=== PATIENT | female | born 1990 | race African-American/Black ===

== ENCOUNTER 2021-04-02 16:42 | Inpatient (IN) | payer OTHER ==
[2021-04-02] MEDS ORDERED: KETOROLAC 30 MG/ML INJ ONE (17:26)
[2021-04-02] MEDS ORDERED: NA CHLORIDE 0.9% 1,000 ML ONE (17:26)
[2021-04-02 17:31] LABS: Urine Blood 1+ (Negative); Urine Glucose Negative (Negative); Urine Protein Negative (Negative)
[2021-04-02 17:44] LABS: Absolute Lymphocytes (CBC) 0.3 K/uL (0.7-4.9); Basophils % 0.6 % (0-1.3); Hematocrit 37.2 % (36.0-45.0); Lymphocytes % 5.2 % (15.3-44.8)
[2021-04-02 18:02] LABS: Bilirubin Direct 0.2 mg/dL (0-0.2); Bilirubin Total 0.4 mg/dL (0.2-1.0); Potassium 3.3 mmol/L (3.5-5.1); Protein, Total 8.1 g/dL (6.4-8.2)
--- NOTE | 2021-04-02 18:02 | RAD REPORT ---
EXAM DESCRIPTION: CTAbdomen Pelvis W Contrast - 04/02/2021 5:53 pm CLINICAL HISTORY: Abdominal pain. ABD PAIN COMPARISON: No comparisons TECHNIQUE: Biphasic CT imaging of the abdomen and pelvis was performed with 100 ml non-ionic IV cont rast. All CT scans are performed using dose optimization technique as appropriate and may include automated exposure control or mA/KV adjustment according to patient size. FINDINGS: The lung bases are clear. The liver, spleen, pancreas, adrenal glands and kidneys are within normal limits. No bowel obstruction, free air, free fluid or abscess. The appendix appears slightly thickened measu ring 8-9 mm. The periappendiceal fat is slightly reticulated. No evidence of significant lymphadenop athy. No suspicious bony findings. Multi fibroid uterus. IMPRESSION: Early acute appendicitis is suspected. Fibroid uterus.
[2021-04-02 18:17] LABS: Platelet Estimate ADEQ; White Blood Cell Scan OK (OK)
--- NOTE | 2021-04-02 18:17 | EDPHYS ---
Physician Documentation [facility] Name: Becky Wang Age: 30 yrs Sex: Female : 1990 Arrival Date: 04/02/2021 Time: 16:47 Bed 8 Private MD: ED Physician Rudi Forrest HPI: 04/02 17:28 This 30 yrs old Black Female presents to ER via Ambulatory with complaints of Pain All pm1 Over. 17:28 Patient reports fever and pain all over. Pain specifically located in the lower pm1 abdomen, hips, and lower back. Fever 102 at home treated with rubbing alcohol on her body. Did not take any antipyretics for fever or pain. Onset: The symptoms/episode began/occurred today. Severity of symptoms: in the emergency department the symptoms fever improved but pain is unchanged. The patient has not experienced similar symptoms in the past. The patient has not recently seen a physician. Negative for vaccination to flu and covid. 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 - Social history:: Smoking status: Patient reports the use of cigarette tobacco products, denies chronic smoking, but will smoke occasionally. ROS: 17:28 Eyes: Negative for injury, pain, redness, and discharge, ENT: Negative for injury, pm1 pain, and discharge, Cardiovascular: Negative for chest pain, palpitations, and edema, Respiratory: Negative for shortness of breath, cough, wheezing, and pleuritic chest pain. 17:28 : Negative for injury, bleeding, discharge, and swelling, MS/Extremity: Negative for injury and deformity, Skin: Negative for injury, rash, and discoloration. 17:28 Neuro: Negative for headache, weakness, numbness, tingling, and seizure. 17:28 Constitutional: Positive for body aches, fever. 17:28 Abdomen/GI: Positive for abdominal pain, of the right lower quadrant and left lower quadrant. 17:28 Back: Positive for of the low back area, pain. 17:28 All other systems are negative. Exam: 17:28 Constitutional: This is a well developed, well nourished patient who is awake, alert, pm1 and in no acute distress. Head/Face: Normocephalic, atraumatic. 17:28 Back: No spinal tenderness. No costovertebral tenderness. Full range of motion. Skin: Warm, dry with normal turgor. Normal color with no rashes, no lesions, and no evidence of cellulitis. MS/ Extremity: Pulses equal, no cyanosis. Neurovascular intact. Full, normal range of motion. 17:28 Eyes: Exam is negative for acute changes, Extraocular movements: no acute changes, Conjunctiva: no acute changes, no injection, Sclera: no acute changes, icterus, is not appreciated. 17:28 Cardiovascular: Exam negative for acute changes, Rate: normal, Rhythm: regular, Pulses: no pulse deficits are appreciated, Heart sounds: normal, normal S1and S2. 17:28 Respiratory: Exam negative for acute changes, respiratory distress, shortness of breath, Breath sounds: are clear throughout. 17:28 Abdomen/GI: Inspection: abdomen appears normal, Palpation: soft, in all quadrants, mild abdominal tenderness, in the right lower quadrant and left lower quadrant. 17:28 Neuro: Exam negative for acute changes, Orientation: is normal, Mentation: is normal, Motor: is normal, moves all fours. Vital Signs: 17:04 BP 131 / 92; Pulse 94; Resp 18; Temp 98.4(TE); Pulse Ox 99% on R/A; Weight 55.34 kg as6 (R); Height 5 ft. 3 in. (160.02 cm) (R); Pain 7/10; 18:44 BP 138 / 77; Pulse 87; Resp 15; Pulse Ox 100% ; jl7 17:04 Body Mass Index 21.61 (55.34 kg, 160.02 cm) as6 MDM: 17:20 Patient medically screened. pm1 17:32 Data reviewed: vital signs. Data interpreted: Pulse oximetry: on room air is 99 %. pm1 Interpretation: normal. 18:10 Physician consultation: Jeff Taylor MD regarding admission, patient's condition, and pm1 will see patient tomorrow, would like further tests performed, basic blood tests, in AM, would like medications started, IV fluids, pain medications, antibiotics, and NPO at midnight. 18:16 Counseling: I had a detailed discussion with the patient and/or guardian regarding: the pm1 historical points, exam findings, and any diagnostic results supporting the discharge/admit diagnosis, lab results, radiology results, the need for further work-up and treatment in the hospital. 04/02 17:19 Order name: Basic Metabolic Panel; Complete Time: 18:08 pm1 04/02 17:19 Order name: CBC with Diff; Complete Time: 18:37 pm1 04/02 17:19 Order name: Hepatic Function; Complete Time: 18:08 pm1 04/02 17:19 Order name: Lipase; Complete Time: 18:08 pm1 04/02 17:19 Order name: COVID-19/FLU A+B (Document "Date of Onset" if Symptomatic); Complete Time: pm1 18:37 04/02 17:31 Order name: Urine Dipstick-Ancillary EDMS 04/02 17:19 Order name: CT Abd/Pelvis - IV Contrast Only; Complete Time: 18:08 pm1 04/02 17:32 Order name: Urine --Ancillary (enter results); Complete Time: 17:52 eb 04/02 18:17 Order name: CBC Smear Scan; Complete Time: 18:37 EDMS 04/03 02:27 Order name: CREATININE WHOLE BLOOD; Complete Time: 02:33 EDMS 04/03 05:38 Order name: CBC with Automated Diff; Complete Time: 10:04 EDMS 04/03 06:19 Order name: Basic Metabolic Panel; Complete Time: 10:04 EDMS 04/03 06:19 Order name: Liver (Hepatic) Function; Complete Time: 10:04 EDMS 04/03 06:19 Order name: Lipase; Complete Time: 10:04 EDMS 04/02 17:19 Order name: IV Saline Lock; Complete Time: 17:36 pm1 04/02 17:19 Order name: Labs collected and sent; Complete Time: 17:36 pm1 04/02 17:19 Order name: Urine Dipstick-Ancillary (obtain specimen); Complete Time: 17:38 pm1 04/02 17:19 Order name: Urine Test (obtain specimen); Complete Time: 17:38 pm1 Administered Medications: 17:37 Drug: NS 0.9% 1000 ml Route: IV; Rate: 1000 ml; Site: right antecubital; as6 17:37 Drug: Ketorolac 30 mg Route: IVP; Site: right antecubital; as6 18:23 CANCELLED (Physician Discretion): NS 0.9% 1000 ml IV at 125 ml/hr once pm1 19:11 Drug: Zosyn (piperacillin-tazobactam) 3.375 grams Route: IVPB; Infused Over: 60 mins; as6 Site: right antecubital; 19:11 Drug: Potassium Effervescent Tablet 50 mEq Route: PO; as6 22:01 Drug: Tylenol 1000 mg {Note: verbal order per ADAM Conrad.} Route: PO; lp1 Disposition: 04/03 12:10 Co-signature as Attending Physician, Rudi Forrest MD I agree with the assessment and rn plan of care. Attestation: The patient's history, exam findings, diagnostics, and a summary of any interventions or procedures was reviewed in detail with Houston Mckeon NP. Disposition Summary: 04/02/21 18:17 Hospitalization Ordered Hospitalization Status: Inpatient Admission pm1 Provider: Jeff Taylor pmDick Condition: Stable pm1 Problem: new pm1 Symptoms: have improved pm1 Bed/Room Type: Standard pm1 Location: [facility] ER HOLD(04/02/21 19:30) Room Assignment: ERHOLD-(04/02/21 19:30) Diagnosis - Unspecified acute appendicitis pm1 Forms: - Medication Reconciliation Form pm1 - SBAR form pm1 Signatures: Dispatcher [employer] EDPaty Grimaldo RN RN Rudi Forrest MD MD rn Pena, Laura, RN RN lp1 Houston Mckeon NP AUTOMATIC CAR WASH ATTENDANT pm1 Angel Carnes RN RN as6 Corrections: (The following items were deleted from the chart) 04/02 18:23 18:19 NS 0.9% 1000 ml IV at 125 ml/hr once ordered. pm1 pm1 19:30 18:17 Telemetry/MedSurg (Inpatient) pm1 19:30 18:17 pm1 mw
--- NOTE | 2021-04-02 18:17 | ER ---
Nurse's Notes [facility] Name: Bceky Wang Age: 30 yrs Sex: Female : 1990 Arrival Date: 04/02/2021 Time: 16:47 Bed 8 Private MD: Diagnosis: Unspecified acute appendicitis Presentation: 04/02 17:04 Chief complaint: Patient states: headache, pain in extremities. Coronavirus screen: as6 Client presents with at least one sign or symptom that may indicate coronavirus-19. Standard/surgical mask placed on the client. Ebola Screen: No symptoms or risks identified at this time. Initial Sepsis Screen: Does the patient meet any 2 criteria? No. Patient's initial sepsis screen is negative. Does the patient have a suspected source of infection? No. Patient's initial sepsis screen is negative. Risk Assessment: Do you want to hurt yourself or someone else? Patient reports no desire to harm self or others. Onset of symptoms was April 02, 2021. 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 - Social history:: Smoking status: Patient reports the use of cigarette tobacco products, denies chronic smoking, but will smoke occasionally. Screenin:11 Abuse screen: Denies threats or abuse. Nutritional screening: No deficits noted. as6 Tuberculosis screening: No symptoms or risk factors identified. Fall Risk None identified. Assessment: 17:10 General: Appears in no apparent distress. uncomfortable, Behavior is calm, cooperative. as6 Pain: Complains of pain in pelvis Pain radiates to back. Neuro: Level of Consciousness is awake, alert, obeys commands, Oriented to person, place, time, Reports headache. Cardiovascular: Capillary refill < 3 seconds Patient's skin is warm and dry. Respiratory: Airway is patent Trachea midline Respiratory effort is even, unlabored, Respiratory pattern is regular, symmetrical. Derm: Skin is intact, is healthy with good turgor. 17:39 General: Behavior is crying. as6 Vital Signs: 17:04 BP 131 / 92; Pulse 94; Resp 18; Temp 98.4(TE); Pulse Ox 99% on R/A; Weight 55.34 kg as6 (R); Height 5 ft. 3 in. (160.02 cm) (R); Pain 7/10; 18:44 BP 138 / 77; Pulse 87; Resp 15; Pulse Ox 100% ; jl7 17:04 Body Mass Index 21.61 (55.34 kg, 160.02 cm) as6 ED Course: 16:47 Patient arrived in ED. ds1 17:04 Angel Carnes, RN is Primary Nurse. as6 17:07 Houston Mckeon NP is PHCP. pm1 17:07 Rudi Forrest MD is Attending Physician. pm1 17:09 Triage completed. as6 17:10 Arm band placed on. as6 17:11 Bed in low position. Call light in reach. Side rails up X2. Pulse ox on. NIBP on. as6 17:44 CT Abd/Pelvis - IV Contrast Only Sent. mh5 17:44 Urine Dipstick-Ancillary Sent. mh5 17:44 Urine collected: clean catch specimen, clear. mh5 17:54 CT Abd/Pelvis - IV Contrast Only In Process Unspecified. EDMS 18:16 Jeff Taylor MD is Hospitalizing Provider. pm1 19:15 No provider procedures requiring assistance completed. Patient admitted, IV remains in lp1 place. 04/03 00:13 Primary Nurse role handed off by Angel Carnes RN cs9 11:50 Delisa Weeks RN is Primary Nurse. jl7 Administered Medications: 04/02 17:37 Drug: NS 0.9% 1000 ml Route: IV; Rate: 1000 ml; Site: right antecubital; as6 17:37 Drug: Ketorolac 30 mg Route: IVP; Site: right antecubital; as6 18:23 CANCELLED (Physician Discretion): NS 0.9% 1000 ml IV at 125 ml/hr once pm1 19:11 Drug: Zosyn (piperacillin-tazobactam) 3.375 grams Route: IVPB; Infused Over: 60 mins; as6 Site: right antecubital; 19:11 Drug: Potassium Effervescent Tablet 50 mEq Route: PO; as6 22:01 Drug: Tylenol 1000 mg {Note: verbal order per ADAM Conrad.} Route: PO; lp1 Outcome: 18:17 Decision to Hospitalize by Provider. pm1 19:15 Admitted to ER Hold. Please see [facility] for further documentation. lp1 19:15 Condition: stable 19:15 Instructed on the need for admit. 04/03 11:51 Patient left the ED. jl7 Signatures: Dispatcher [employer] EDME Merced Diaz ds1 Tiffani De, RN RN lp1 Houston Mckeon NP HANDLE ASSEMBLER pm1 Tasha Guillaume Jahala, RN RN jl7 Xenia Scott 9 Angel Carnes RN RN as6
[2021-04-02 18:18] LABS: Blood Morphology Comment NOT SEEN (NOT SEEN)
[2021-04-02 18:29] LABS: SARS-COV-2 RT PCR POSITIVE (NEGATIVE)
[2021-04-02] MEDS ORDERED: D5 0.45 NS 1,000 ML IV ONE (18:53)
[2021-04-02] MEDS ORDERED: NA CHLORIDE 0.9% 100 ML ONE (18:53)
[2021-04-02] MEDS ORDERED: POTASSIUM 25 MEQ EFFERV TAB ONE (18:53)
[2021-04-02] MEDS ORDERED: PIPERACIL/TAZO 3.375 GM VIAL IV ONE (18:53)
[2021-04-02] MEDS ORDERED: D5 0.45 NS 1,000 ML IV SCH (19:00)
[2021-04-02] MEDS: D5 0.45 NS 1,000 ML IV SCH (19:03)
[2021-04-02] MEDS ORDERED: MORPHINE 4 MG/ML SYR IV PRN (19:03)
[2021-04-02] MEDS ORDERED: ONDANSETRON 4 MG/2 ML VIAL IV PRN (19:03)
[2021-04-02] MEDS ORDERED: ACETAMINOPHEN 500 MG TAB ONE (21:55)
[2021-04-02 23:43] VITALS: BMI 21.6
[2021-04-03 01:02] VITALS: O2SAT 100
[2021-04-03] MEDS ORDERED: PIPERACIL/TAZO 3.375 GM VIAL IV ONE ×2 (01:33→08:51)
[2021-04-03] MEDS ORDERED: NA CHLORIDE 0.9% 100 ML ONE ×2 (01:33→08:51)
[2021-04-03] MEDS: PIPER TAZO 3.375 GM in NA CHLORIDE 0.9% 100 ML IV SCH ×2 (01:53→09:00)
[2021-04-03 05:30] LABS: Absolute Lymphocytes (CBC) 0.6 K/uL (0.7-4.9); Basophils % 0.9 % (0-1.3); Hematocrit 32.7 % (36.0-45.0); Lymphocytes % 15.1 % (15.3-44.8); MPV 7.2 fL (7.6-11.3); RBC Red Blood Cell Count 3.53 M/uL (3.86-4.86)
[2021-04-03 05:49] LABS: ALT/SGPT 52 U/L (12-78); AST/SGOT 46 U/L (15-37); Albumin 2.9 g/dL (3.4-5.0); Alkaline Phosphatase 57 U/L (45-117); BUN Blood Urea Nitrogen 8 mg/dL (7-18); Bicarbonate 24 mmol/L (21-32); Bilirubin Direct 0.1 mg/dL (0-0.2); Bilirubin Total 0.3 mg/dL (0.2-1.0); Glucose Level 107 mg/dL (74-106); Lipase 109 U/L (73-393); Potassium 3.5 mmol/L (3.5-5.1); Protein, Total 6.3 g/dL (6.4-8.2); Sodium Level 140 mmol/L (136-145)
[2021-04-03] MEDS ORDERED: D5 0.45 NS 1,000 ML IV ONE (06:55)
[2021-04-03] MEDS: D5 0.45 NS 1,000 ML IV SCH (07:09)
[2021-04-03] MEDS ORDERED: INFLUENZA VACCINE (for 6+ mo) 0.5 ML DOSE IMVAC ONE (09:00)
[2021-04-03 09:03] VITALS: BP 122/99; TEMP 98.3
--- NOTE | 2021-04-03 11:00 | P.HP ---
Date of Service: 04/03/21 PC: This due to old female presented to the emergency room with severe right lower quadrant abdominal pain for diagnosis and treatment. HPC: Patient had been feeling well, began experiencing right lower quadrant abdominal pain. Pain intensified. Associated with some nausea. PSHx: Negative PMHx: Negative Social Hx: No known allergies Sys R: Has been feeling well the last couple of days. No real nausea or vomiting. Denies any urinary complaints. No vaginal discharge. O/E: Awake alert vital signs are stable HEENT: Not jaundiced Chest: Chest movement equal bilaterally Abd: Soft nontender no guarding or rebound. Patient easily sits up and moves around on the stretcher. [place]: Intact Data: White cell count 6000, CT scan suggested possible early appendicitis Impression: Early appendicitis Plan: Patient has been admitted for observation. She may require going to the operating room.
--- NOTE | 2021-04-03 11:02 | P.PN ---
Date of Service: 04/03/21 S: Patient feels better today, up moving around, asking for food. Says her abdominal pain has resolved. O: Patient is able to spring up right while laying in the bed. Answers questions and does not look at all distressed. Anxious to go home if possible. A: Patient does not have appendicitis. She did test Covid positive which may explain her abdominal pain. However today she does not have a surgical abdomen at all. PE: Patient was admitted for observation. This morning as her exam is essentially benign. Apparently last night she did have some right lower quadrant tenderness which has completely resolved. She is awake alert looks well, asking for food. I will discharge her at this time. She lives close to the hospital and knows should she have any questions or problems that she is to return immediately. She is comfortable with this. I will discussed with the ER physician as she did test positive for Covid.
== END 2021-04-03 11:50 | disposition home or self-care (01) | DRG 179 ==
LOC: ER 16:42 → ERHOLD 18:20
PROVIDERS: ADMIT Surgery; ATTEND Surgery
DX: U07.1 COVID-19 (principal); R10.31 Right lower quadrant pain
CPT/HCPCS: 0240U; 36415; 74177; 80048; 80076; 81003; 81025; 82565; 83690; 85025; 96374; 96375; 99285; J2543; J7030; J7799; Q9967

== ENCOUNTER 2021-09-25 18:39 | Emergency (ER) | payer OTHER ==
--- OUTSIDE RECORDS SUMMARY | 2021-09-25 18:42 | XMS REPORT | Continuity of Care Document ---
:1990 Author Organization [facility] t Address [address] [place] [address] Care Team Providers Name Role Phone Pcp, Does Not Have A Primary Care Physician Nicholas RN Attending Clinician Unavailable Lab, - Db Attending Clinician Unavailable Werner MOTA, Cam Attending Clinician Payers Payer Name Policy Type Policy Number Effective Date Expiration Date S ource Problems Condition Condition Condition Status Onset Resolution Last Treating Co mments Source Name Details Category Date Date Treatment Clinician Date Supervisio Supervisio Disease Active U nivers n of n of 5-27 ity of normal normal 00:00: [place] [facility] , Br anch antepartum antepartum Allergies, Adverse Reactions, Alerts This patient has no known allergies or adverse reactions. Social History Social Habit Start Date Stop Date Quantity Comments Source ASSERTION 2021-07-27 University 00:00:[address] [facility] History [facility] o f Alcohol Frequency [facility] edical Branch History [facility] University o f Alcohol Std [place] [facility] [place] Binge [place] [facility] Exposure to 2021-09-13 2021-09-23 Not sure University SARS-CoV-2 00:00:00 11:27:00 [facility] (event) Branch Tobacco use and 2021-09-09 2021-09-09 Never used Universit y of exposure 00:00:00 00:00:[address] [facility] Alcohol intake 2021-09-09 2021-09-09 Ex-drinker [facility] 00:00:00 00:00:00 (finding) [facility] Alcohol Comment 2021-09-09 2021-09-09 quit when found Univ ersity of 00:00:00 00:00:00 out was [facility] Tobacco Comment 2021-09-09 2021-09-09 1 cig every Universi ty of 00:00:00 00:00:[address] [facility] Sex Ass[birth year] Universit y of 00:00:00 00:00:[address] [facility] Smoking Status Start Date Stop Date Source Current some day smoker 2021-09-09 00:00:00 [facility] of [facility] Medications Ordered Filled Start Stop Current Ordering Indication Dosage Frequency Signature Comments Components Source Medication Medication Date Date Medication? Clinician (SIG) Name Name metroNIDAZO Yes [id number] 500mg Take 1 Univers LE 500 mg 5-29 tablet by ity o f tablet 00:00: mouth [place] 00 every 12 Medical (twelve) Branch hours. metroNIDAZO 2021-0 Yes [id number] 500mg Take 1 Univers LE 500 mg 5-29 tablet by ity o f tablet 00:00: mouth [place] 00 every 12 Medical (twelve) Branch hours. metroNIDAZO 2021-0 Yes [id number] 500mg Take 1 Univers LE 500 mg 5-29 tablet by ity o f tablet 00:00: mouth [place] 00 every 12 Medical (twelve) Branch hours. PNV 2021-0 Yes Take by Univers no.95/ilda 5-27 mouth. ity of 09:19: [place] fum/folic 17 Medical ac Branch ( ORAL) PNV 2021-0 Yes Take by Univers no.95/idla 5-27 mouth. ity of us 09:19: [place] fum/folic 17 Medical ac Branch ( ORAL) PNV 2021-0 Yes Take by Univers no.95/ilda 5-27 mouth. ity of us 09:19: [place] fum/folic 17 Medical ac Branch ( ORAL) Procedures This patient has no known procedures. Encounters Start End Encounter Admission Attending Care Care Encounter Source Date/Time Date/Time Type Type Clinicians Facility Department ID 2021-09-25 2021-09-25 Nurse Asha Peterson [id number] Univers 00:00:00 00:00:00 Triage DEYA [id number] it y [facility] [id number] Roman as [id number] [facility] 019 Branch 2021-09-23 2021-09-23 Pediatric Dental Assistant Lab, [place] - [facility] [id number] Univers 11:30:00 13:02:06 Visit Mary Ellen Caldera [id number] ity of [place] [id number] Roman as ARI?BLEA [id number] Ca araseli [address] MEDICAL OFFICE BUILDING 2021-09-23 2021-09-23 Case Mary Ellen Caldera [facility] [id number] Univers 00:00:00 00:00:00 Management Gomez DEVINE [id number] [facility]y [facility] [id number] [place] [id number] 134 Branch Results This patient has no known results.
[2021-09-25 19:23] LABS: Urine Blood Negative (Negative); Urine Glucose Negative (Negative); Urine Protein Negative (Negative); Urine pH 6.5 (5.0-7.0)
[2021-09-25 19:38] LABS: Urine Bacteria <20 /HPF (<20); Urine RBC NONE SEEN /HPF (NONE SEEN); Urine Yeast PRESENT (NONE SEEN); Urine Yeast with Hyphae PRESENT
[2021-09-25 19:44] LABS: Absolute Lymphocytes (CBC) 1.8 K/uL (0.7-4.9); Hematocrit 36.5 % (36.0-45.0); Lymphocytes % 19.5 % (15.3-44.8); MPV 6.6 fL (7.6-11.3)
[2021-09-25] MEDS ORDERED: NA CHLORIDE 0.9% 1,000 ML ONE (19:44)
--- NOTE | 2021-09-25 20:05 | RAD REPORT ---
EXAM DESCRIPTION: US - 1St Trimest Single 1St Fetus - 09/25/2021 7:25 pm CLINICAL HISTORY: with abdominal pain COMPARISON: None FINDINGS: Uterus measures 7 x 5 x 6 centimeters. A gestational sac is present within the endometrium . Within this is a pole with a crown-rump length 4.2 centimeters. Cardiac activity 176 beats pe r minute. Right and left adnexum unremarkable. No significant free fluid IMPRESSION: Single live intrauterine with an estimated gestational 10 weeks 6 days ROVERTO 05/2022
[2021-09-25 20:15] LABS: Potassium 3.6 mmol/L (3.5-5.1)
--- NOTE | 2021-09-25 20:25 | ER ---
Nurse's Notes [facility] Name: Becky Wang Age: 31 yrs Sex: Female : 1990 Arrival Date: 09/25/2021 Time: 18:40 Bed 7 Private MD: Diagnosis: Lower abdominal pain, unspecified;11 weeks gestation of Presentation: 09/25 19:13 Chief complaint: Patient states: she is having suprapubic pain, urinary frequency, as6 dysuria, pt is also 11 weeks . Coronavirus screen: At this time, the client does not indicate any symptoms associated with coronavirus-19. Ebola Screen: No symptoms or risks identified at this time. Initial Sepsis Screen: Does the patient meet any 2 criteria? No. Patient's initial sepsis screen is negative. Does the patient have a suspected source of infection? No. Patient's initial sepsis screen is negative. Risk Assessment: Do you want to hurt yourself or someone else? Patient reports no desire to harm self or others. Onset of symptoms was September 25, 2021 at 09:30. 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 - Social history:: Smoking status: Patient/guardian denies using tobacco. Screenin:19 Abuse screen: Denies threats or abuse. Denies injuries from another. Nutritional as6 screening: No deficits noted. Tuberculosis screening: No symptoms or risk factors identified. Fall Risk None identified. Assessment: 19:18 General: Appears in no apparent distress. Behavior is calm, cooperative. Pain: as6 Complains of pain in suprapubic area Pain currently is 6 out of 10 on a pain scale. Quality of pain is described as pressure. Neuro: Ayers Agitation-Sedation Scale (RASS): 0 - Alert and Calm Level of Consciousness is awake, alert, obeys commands, Oriented to person, place, time, situation. Cardiovascular: Capillary refill < 3 seconds Patient's skin is warm and dry. Respiratory: Respiratory effort is even, unlabored, Respiratory pattern is regular, symmetrical. GI: Reports lower abdominal pain. : Reports burning with urination, since 0930 AM today urinary frequency. 20:46 GI: as6 20:47 GI: as6 Vital Signs: 19:13 BP 129 / 75; Pulse 85; Resp 18 S; Temp 97.2(TE); Pulse Ox 100% on R/A; Weight 56.7 kg as6 (R); Height 5 ft. 3 in. (160.02 cm) (R); Pain 6/10; 20:43 BP 123 / 86; Pulse 84; Resp 18 S; Pulse Ox 97% on R/A; as6 19:13 Body Mass Index 22.14 (56.70 kg, 160.02 cm) as6 ED Course: 18:40 Patient arrived in ED. as 18:43 Rajni Davis PA is PHCP. en 18:43 Thony Avila MD is Attending Physician. en 19:02 Angel Carnes, ANABEL is Primary Nurse. as6 19:15 Triage completed. as6 19:16 Arm band placed on. as6 19:19 Bed in low position. Call light in reach. Side rails up X 1. Adult w/ patient. Pulse ox as6 on. NIBP on. 19:27 US 1st Trimest Single 1st Fetus In Process Unspecified. EDMS 19:33 PHCP role handed off by Rajni Davis PA kb 19:33 Maryam Keenan FNP-C is PHCP. kb 19:38 HCG-Quantitative Sent. jb4 19:38 BMP Sent. jb4 19:38 UA MICROSCOPIC Sent. jb4 19:38 CBC with Diff Sent. jb4 19:40 Patient has correct armband on for positive identification. Placed in gown. Warm mh5 blanket given. 19:40 Initial lab(s) drawn, by me, sent to lab. Urine collected: clean catch specimen, mh5 cloudy. Inserted saline lock: 20 gauge in right antecubital area, using aseptic technique. Blood collected. 20:46 No provider procedures requiring assistance completed. IV discontinued, intact, as6 bleeding controlled, No redness/swelling at site. Pressure dressing applied. Administered Medications: 19:41 Drug: NS 0.9% 1000 ml Route: IV; Rate: 1 bolus; Site: right antecubital; as6 20:47 Follow up: Response: No adverse reaction; IV Status: Completed infusion; IV Intake: as6 1000ml Medication: 20:47 VIS not applicable for this client. as6 Intake: 20:47 IV: 1000ml; Total: 1000ml. as6 Outcome: 20:24 Discharge ordered by MD. bee 20:46 Discharged to home ambulatory, with significant other. as6 20:46 Condition: stable 20:46 Discharge instructions given to patient, Instructed on discharge instructions, follow up and referral plans. Demonstrated understanding of instructions, follow-up care. 20:47 Patient left the ED. as6 Signatures: Dispatcher [employer] EDMS Maryam Keenan, ERICH PASTRANA-Rachael Quinteros James, RN RN jb4 Tasha Guillaume [facility] Angel Carnes RN RN as6 Rajni Davis PA PA en
--- NOTE | 2021-09-25 20:25 | EDPHYS ---
Physician Documentation [facility] Name: Becky Wang Age: 31 yrs Sex: Female : 1990 Arrival Date: 09/25/2021 Time: 18:40 Bed 7 Private MD: ED Physician Thony Avila HPI: 09/25 18:52 This 31 yrs old Black Female presents to ER via Unassigned with complaints of Abdominal en Pain - 11 wks preg. 18:52 1-year-old female G1, 11 weeks EGA x LMP 07/27 presents to ED with 3 days of en worsening suprapubic and pelvic cramping. She reports associated urinary frequency and dysuria without hematuria vaginal discharge or vaginal bleeding. She called her domestic laundry worker who instructed her to come to the ED should her symptoms worsen. She denies fever, chills, nausea, vomiting. Patient has had a previous ultrasound confirming IUP. OB is Dr. Caldera. DOCKETING SPECIALIST: 19:19 LMP 07/02/2021, Verified, EDC 04/08/2022, Gestational age from LMP: 12 weeks 2 as6 days Historical: - Allergies: 19:16 No Known Allergies; as6 - Home Meds: 19:16 None [Active]; as6 - PMHx: 19:16 None; as6 - PSHx: 19:16 None; as6 - Immunization history:: Client reports having NOT received the Covid vaccine. - Social history:: Smoking status: Patient/guardian denies using tobacco. ROS: 18:52 Constitutional: Negative for fever, chills, and weight loss. en 18:52 Constitutional: Negative for body aches, chills, fatigue, fever. 18:52 Abdomen/GI: Positive for abdominal pain, nausea, vomiting, and diarrhea. 18:52 Back: 18:52 : Positive for urinary frequency, burning with urination, Negative for hematuria, foul smelling urine, vaginal bleeding, vaginal discharge, vaginal itching. 18:52 Skin: Negative for 18:52 All other systems are negative. Exam: 18:52 Constitutional: This is a well developed, well nourished patient who is awake, alert, en and in no acute distress. 18:52 Constitutional: The patient appears in no acute distress, alert, awake. 18:52 Eyes: Conjunctiva: normal, no exudate, no injection. 18:52 ENT: Mouth: Lips: moist, Oral mucosa: pink and intact, moist, Posterior pharynx: Airway: patent. 18:52 Cardiovascular: Rate: normal, Rhythm: regular, Pulses: no pulse deficits are appreciated, Heart sounds: normal, no murmur, no rub, no gallop. 18:52 Respiratory: the patient does not display signs of respiratory distress, Respirations: normal, Breath sounds: are clear throughout, no rales, rhonchi, no stridor, no wheezing. 18:52 Abdomen/GI: Inspection: abdomen appears normal, Bowel sounds: normal, in all quadrants, Palpation: soft, Mild suprapubic tenderness to palpation.. 18:52 Back: CVA tenderness, is absent. 18:52 Neuro: Orientation: is normal, no acute changes, to person, place \T\ time. Mentation: is normal. 18:52 Psych: Affect is calm. 18:52 Abdomen/GI: No adnexal or right lower quadrant tenderness to palpation. No tenderness en at McBurney's point, no rebound guarding or peritoneal signs.. Vital Signs: 19:13 BP 129 / 75; Pulse 85; Resp 18 S; Temp 97.2(TE); Pulse Ox 100% on R/A; Weight 56.7 kg as6 (R); Height 5 ft. 3 in. (160.02 cm) (R); Pain 6/10; 20:43 BP 123 / 86; Pulse 84; Resp 18 S; Pulse Ox 97% on R/A; as6 19:13 Body Mass Index 22.14 (56.70 kg, 160.02 cm) as6 MDM: 18:52 Differential diagnosis: urinary tract infection, Threatened , discomforts of en . Data reviewed: vital signs, nurses notes, lab test result(s). 18:59 Patient medically screened. en 20:24 Counseling: I had a detailed discussion with the patient and/or guardian regarding: the kb historical points, exam findings, and any diagnostic results supporting the discharge/admit diagnosis, lab results, radiology results, the need for outpatient follow up, an OB/Gyne specialist, to return to the emergency department if symptoms worsen or persist or if there are any questions or concerns that arise at home. 09/25 18:52 Order name: CBC with Diff; Complete Time: 19:47 en 09/25 18:52 Order name: UA MICROSCOPIC; Complete Time: 19:40 en 09/25 18:52 Order name: BMP; Complete Time: 20:15 en 09/25 18:52 Order name: HCG-Quantitative; Complete Time: 20:15 en 09/25 19:23 Order name: Urine Dipstick-Ancillary; Complete Time: 19:24 EDMS 09/25 19:29 Order name: Urine --Ancillary (enter results); Complete Time: 19:36 wm 09/25 18:52 Order name: 1st Trimest Single 1st Fetus; Complete Time: 20:12 en 09/25 18:52 Order name: Saline Lock; Complete Time: 19:38 en 09/25 19:41 Order name: Urine Culture EDMS Administered Medications: 19:41 Drug: NS 0.9% 1000 ml Route: IV; Rate: 1 bolus; Site: right antecubital; as6 20:47 Follow up: Response: No adverse reaction; IV Status: Completed infusion; IV Intake: as6 1000ml Disposition Summary: 09/25/21 20:24 Discharge Ordered Location: Home kb Condition: Stable kb Diagnosis - Lower abdominal pain, unspecified kb - 11 weeks gestation of kb Followup: kb - With: Emergency Department - When: As needed - Reason: Worsening of condition Followup: kb - With: Private Physician - When: 2 - 3 days - Reason: Recheck today's complaints, Continuance of care, Re-evaluation by your physician Discharge Instructions: - Discharge Summary Sheet kb - Abdominal Pain During , [id number] kb Forms: - Medication Reconciliation Form kb - Thank You Letter kb - Antibiotic Education kb - Prescription Opioid Use kb Signatures: Dispatcher [employer] EDMS Maryam Keenan, SALES AGENT PROTECTIVE SERVICE-C SALES AGENT PROTECTIVE SERVICE-Angel Weiner RN RN as6 Rajni Davis PA PA en Corrections: (The following items were deleted from the chart) 18:59 18:52 1-year-old female G1, 11 weeks EGA x LMP 07/27 presents to ED with 3 days of en worsening suprapubic and pelvic cramping. She reports associated urinary frequency and dysuria without hematuria vaginal discharge or vaginal bleeding. She called her domestic laundry worker who instructed her to come to the ED should her symptoms worsen. She denies fever, chills, nausea, vomiting.. en
[2021-09-25 21:02] VITALS: TEMP 97.2
[2021-09-25 21:04] VITALS: BP 123/86; O2SAT 97
== END 2021-09-25 20:47 | disposition home or self-care (01) ==
LOC: ER 18:39
DX: O26.891 Other specified pregnancy related conditions, first trimester (principal); Z3A.11 11 weeks gestation of pregnancy
CPT/HCPCS: 87088; 85025; 87086; 80048; 36415; 81025; 84702; 76801; 96360; 99284; J7030; 81003; 81015